=== PATIENT | female | born 2000 | race Hispanic/Latino ===

== ENCOUNTER 2022-03-05 20:37 | Emergency (ER) | payer SELFPAY ==
[2022-03-05 23:15] LABS: Bilirubin Neg (Negative); Blood, Urine Negative (Negative); Clarity Clear (Clear); Glucose, Urine (Dipstick) Normal (Negative); Ketone, Urine 150 mg/dL (Negative); Leukocyte Negative (Negative); Nitrite Negative (Negative); Protein, Urine (Dipstick) 15 mg/dl (Neg-Trace); Specific Gravity, Urine 1.025 (1.002-1.036); Urobilinogen Normal mg/dL (Less than 2)
[2022-03-05] MEDS ORDERED: Ondansetron PF 4 MG/2 ML Vial ONE (23:53)
[2022-03-06 00:14] LABS: #Basophils 0.1 10x3/uL (0.0-0.2); #Eosinphils 0.2 10x3/uL (0.0-0.5); #Monocytes 0.7 10x3/uL (0.0-1.1); #Neutrophils 7.7 10x3/uL (1.5-8.4); %Basophils 0.7 % (0.0-2.0); %Eosinophils 1.8 % (0.0-6.0); %Lymphocytes 27.3 % (18.0-47.0); %Monocytes 5.9 % (0.0-10.0); %Neutrophils 63.8 % (40.0-75.0); Hemoglobin 13.7 g/dL (12.0-15.5); Mean Corpuscular HGB CONC 34.8 g/dL (32.0-36.0); Mean Corpuscular Hemoglobin 29.5 pg (27.0-33.0); Mean Corpuscular Volume 84.9 fl (81.6-98.3); Mean Platelet Volume 9.8 fl (7.4-10.4); Platelet Count 345 10x3/uL (150-450); RBC Distribution Width 12.6 % (11.5-14.5); Red Blood Cell (RBC) Count 4.64 10x6/uL (3.90-5.03)
[2022-03-06 01:13] LABS: ALT (SGPT) 28 U/L (8-55); AST (SGOT) 21 U/L (5-34); Albumin 4.2 g/dL (3.5-5.0); Alkaline Phosphatase 56 U/L (40-110); Anion Gap 17 mmol/L (10-20); BUN (Urea Nitrogen) 6 mg/dL (7.0-18.7); Bilirubin, Total 0.5 mg/dL (0.2-1.2); Calc. Creatinine Clearance 0 mL/min (70-130); Calcium 9.5 mg/dL (7.8-10.44); Carbon Dioxide 19 mmol/L (22-29); Chloride 105 mmol/L (98-107); Globulin 3.2 g/dL (2.4-3.5); Glucose 85 mg/dL (70-105); Potassium 3.9 mmol/L (3.5-5.1); Protein, Total 7.4 g/dL (6.0-8.3); Sodium 137 mmol/L (136-145)
[2022-03-07 12:28] LABS: Chlamydia by PCR Not Detected (NotDetected); GC by PCR Not Detected (NotDetected)
== END 2022-03-06 01:33 | disposition home or self-care (01) ==
LOC: CSHERS 20:37
DX: O20.9 Hemorrhage in early pregnancy, unspecified (principal); O99.891 Other specified diseases and conditions complicating pregnancy; R10.32 Left lower quadrant pain; Z3A.12 12 weeks gestation of pregnancy
CPT/HCPCS: 36415; 76856; 80053; 81003; 84702; 85025; 86900; 86901; 87480; 87491; 87510; 87591; 87660; 96361; 96374; J2405

== ENCOUNTER 2022-09-05 05:32 | Inpatient (IN) | payer MEDICAID, SELFPAY ==
[2022-09-05 06:22] VITALS: BMI 41.5
[2022-09-05] MEDS ORDERED: HYDROcodone/Acetaminophen 5/325 mg Tablet PO PRN ×3 (06:46→14:23)
[2022-09-05] MEDS ORDERED: Ondansetron PF 4 MG/2 ML Vial IVP PRN ×5 (06:46→19:38)
[2022-09-05] MEDS ORDERED: Promethazine HCl 25 MG/ML VIAL IM PRN ×5 (06:46→19:38)
[2022-09-05] MEDS ORDERED: Butorphanol Tartrate 1 MG/ML VIAL SLOW IVP PRN (06:46)
[2022-09-05] MEDS ORDERED: Acetaminophen 500 MG TAB PO PRN (06:46)
[2022-09-05] MEDS ORDERED: Lidocaine 1% (PF) 30 ML VIAL SC PRN (06:46)
[2022-09-05] MEDS ORDERED: Ibuprofen 800 MG TAB PO PRN (06:46)
[2022-09-05] MEDS ORDERED: hydrALAZINE 20 MG/ML VIAL SLOW IVP PRN ×3 (06:46→19:34)
[2022-09-05 06:58] LABS: Hemoglobin 13.8 g/dL (12.0-15.5); Mean Corpuscular HGB CONC 34.2 g/dL (32.0-36.0); Mean Corpuscular Hemoglobin 27.5 pg (27.0-33.0); Mean Corpuscular Volume 80.3 fl (81.6-98.3); Mean Platelet Volume 11.5 fl (7.4-10.4); Platelet Count 345 10x3/uL (150-450); RBC Distribution Width 15.5 % (11.5-14.5); Red Blood Cell (RBC) Count 5.02 10x6/uL (3.90-5.03); White Blood Cell (WBC) Count 11.7 10x3/uL (3.5-10.5)
[2022-09-05] MEDS ORDERED: Lactated Ringer's 1,000 ML IV SCH ×2 (07:00)
[2022-09-05] MEDS ORDERED: Penicillin G Potassium 5 MILL.UNITS in Sodium Chloride 0.9% 100 ML IVPB SCH (07:00)
[2022-09-05] MEDS ORDERED: NS w/ Oxytocin 30 units 500 ML IV SCH ×4 (07:00→19:45)
[2022-09-05] MEDS ORDERED: Fentanyl 2 mcg/Bup 0.1% Cadd 100 ML ONE (07:02)
[2022-09-05 07:31] LABS: HBSAg Index 0.14 S/CO (0-0.99); Hep B Surf Ag Non-Reactive S/CO (NonReactive)
[2022-09-05 07:32] LABS: Syphilis Antibody Nonreactive (Nonreactive); Syphilis Antibody Index 0.04 S/CO (<1.00 Non-Reactive)
[2022-09-05] MEDS ORDERED: diphenhydrAMINE 50 MG/ML VIAL IVP PRN ×3 (08:07→19:33)
[2022-09-05] MEDS ORDERED: Acetaminophen 325 MG TAB PO PRN (08:07)
[2022-09-05] MEDS ORDERED: ePHEDrine Sulfate 50 MG/10 ML VIAL SLOW IVP PRN (08:07)
[2022-09-05] MEDS ORDERED: Naloxone HCl 0.4 mg/ml Vial IVP PRN ×8 (08:07→19:37)
[2022-09-05] MEDS ORDERED: Moisturizing Cream (Eucerin) 113 GM JAR TOP PRN ×3 (08:07→19:35)
[2022-09-05] MEDS ORDERED: Communication Order-Pharmacy FS SCH ×2 (08:15→13:00)
[2022-09-05] MEDS ORDERED: Fentanyl 2 mcg/Bupivacaine 0.1% Cassette 100 ML EPIDURAL SCH (08:15)
[2022-09-05] MEDS ORDERED: Lactated Ringer's 500 ML IV PRN (08:23)
[2022-09-05 09:15] LABS: SARS-CoV-2 NAA Rapid Test Not Detected (NotDetected)
[2022-09-05] MEDS ORDERED: Penicillin G 2.5 MILL.units 2.5 MILL.UNITS in Premix Bag 1 BAG IVPB SCH (11:00)
[2022-09-05] MEDS ORDERED: Bupivacaine 0.25% HCL 30 ML VIAL ONE (12:00)
[2022-09-05] MEDS ORDERED: Famotidine/PF 20 mg/2ml Vial SLOW IVP PRN (12:45)
[2022-09-05] MEDS ORDERED: Bicitra 30 ML UDCUP PO PRN (12:45)
[2022-09-05] MEDS ORDERED: Azithromycin 500 MG in Sodium Chloride 0.9% 250 ML 250 ML IVPB SCH (12:45)
[2022-09-05] MEDS ORDERED: CEFAZOLIN 2 GM in Sodium Chloride 0.9% 100 ML IVPB SCH ×3 (12:45→21:00)
[2022-09-05] MEDS ORDERED: Morphine PF 10 MG/10 ML VIAL ONE (12:46)
[2022-09-05] MEDS ORDERED: Dexamethasone 4 mg/ml Vial ONE (12:47)
[2022-09-05] MEDS ORDERED: Ondansetron PF 4 MG/2 ML Vial ONE (12:47)
[2022-09-05] MEDS ORDERED: Oxytocin 10 UNITS/ML VIAL ONE (12:47)
[2022-09-05] MEDS ORDERED: Ketorolac Tromethamine 30 MG/ML VIAL ONE ×2 (12:47→14:37)
[2022-09-05] MEDS ORDERED: Chloroprocaine 3% PF 20 ML VIAL ONE (12:47)
[2022-09-05] MEDS ORDERED: Ketorolac Tromethamine 30 MG/ML VIAL IVP PRN (12:53)
[2022-09-05] MEDS ORDERED: Ondansetron HCl/PF 4 MG/2 ML Vial IVP PRN (12:53)
[2022-09-05] MEDS ORDERED: Meperidine HCl/PF 25 MG/ML VIAL SLOW IVP PRN (12:53)
[2022-09-05] MEDS ORDERED: Fentanyl 100 MCG/2 ML VIAL SLOW IVP PRN (12:53)
[2022-09-05] MEDS ORDERED: Naloxone HCl 0.4 mg/ml Vial IV PRN ×2 (12:53→19:36)
[2022-09-05] MEDS ORDERED: Promethazine HCl 25 MG SUPP PR PRN (12:53)
[2022-09-05] MEDS ORDERED: Ketorolac Tromethamine 30 MG/ML VIAL IVP SCH ×2 (13:00→19:30)
[2022-09-05] MEDS ORDERED: Famotidine/PF 20 mg/2ml Vial ONE (13:27)
[2022-09-05] MEDS ORDERED: diphenhydrAMINE 25 MG CAP PO PRN ×2 (14:23→19:33)
[2022-09-05] MEDS ORDERED: Simethicone Chewable 80 MG TAB PO PRN (14:23)
[2022-09-05] MEDS ORDERED: Bisacodyl 10 MG SUPP PR PRN ×2 (14:23→19:32)
[2022-09-05] MEDS ORDERED: Meperidine HCl/PF 25 MG/ML VIAL IM PRN (14:23)
[2022-09-05] MEDS ORDERED: Lanolin Ointment 7 GM TUBE TOP PRN ×2 (14:23→19:35)
[2022-09-05] MEDS ORDERED: Meperidine HCl/PF 25 MG/ML VIAL ONE (14:54)
[2022-09-05] MEDS ORDERED: metroNIDAZOLE 500 MG in Premix Bag 1 BAG IVPB SCH (15:00)
[2022-09-05] MEDS ORDERED: Boostrix 0.5 ML (Tdap) VIAL (>/=7 yrs of age) IM ONE (19:45)
[2022-09-05] MEDS: metroNIDAZOLE 500 MG in Premix Bag 1 BAG IVPB SCH ×2 (19:46→23:45)
[2022-09-05] MEDS: Ketorolac Tromethamine 30 MG/ML VIAL IVP SCH (20:23)
[2022-09-05] MEDS: Ferrous Sulfate 325 MG TAB PO SCH (20:52)
[2022-09-05] MEDS ORDERED: Docusate 100 MG CAP PO SCH ×2 (21:00)
[2022-09-05] MEDS ORDERED: Ferrous Sulfate 325 MG TAB PO SCH (21:00)
[2022-09-05] MEDS: CEFAZOLIN 2 GM in Sodium Chloride 0.9% 100 ML IVPB SCH (22:03)
[2022-09-05] MEDS: Docusate 100 MG CAP PO SCH (22:04)
[2022-09-06] MEDS: Ketorolac Tromethamine 30 MG/ML VIAL IVP SCH ×2 (03:00→07:29)
[2022-09-06] MEDS: CEFAZOLIN 2 GM in Sodium Chloride 0.9% 100 ML IVPB SCH ×3 (05:42→21:37)
[2022-09-06] MEDS: Ferrous Sulfate 325 MG TAB PO SCH ×2 (07:18→22:31)
[2022-09-06] MEDS: metroNIDAZOLE 500 MG in Premix Bag 1 BAG IVPB SCH ×3 (07:29→23:01)
[2022-09-06] MEDS: Docusate 100 MG CAP PO SCH ×2 (07:30→21:38)
[2022-09-06] MEDS: Prenatal Vitamin 1 TAB PO SCH (07:30)
[2022-09-06] MEDS ORDERED: Prenatal Vitamin 1 TAB PO SCH (09:00)
[2022-09-06] MEDS: HYDROcodone/Acetaminophen 5/325 mg Tablet PO PRN ×3 (09:04→21:38)
[2022-09-06 09:25] LABS: Hemoglobin 11.5 g/dL (12.0-15.5); Mean Corpuscular HGB CONC 30.4 g/dL (32.0-36.0); Mean Corpuscular Hemoglobin 29.8 pg (27.0-33.0); Mean Corpuscular Volume 97.9 fl (81.6-98.3); Mean Platelet Volume 9.8 fl (7.4-10.4); Platelet Count 141 10x3/uL (150-450); RBC Distribution Width 18.6 % (11.5-14.5); Red Blood Cell (RBC) Count 3.86 10x6/uL (3.90-5.03); White Blood Cell (WBC) Count 10.6 10x3/uL (3.5-10.5)
[2022-09-06] MEDS ORDERED: Ibuprofen 800 MG TAB PO SCH (14:00)
[2022-09-06] MEDS: Ibuprofen 800 MG TAB PO SCH ×2 (14:05→21:39)
[2022-09-06] MEDS ORDERED: Boostrix 0.5 ML (Tdap) VIAL (>/=7 yrs of age) IM ONE (14:23)
[2022-09-06] MEDS ORDERED: Sodium Chloride 0.9% 100 ML ONE (21:13)
[2022-09-06] MEDS: Simethicone Chewable 80 MG TAB PO PRN (21:38)
[2022-09-07] MEDS: Simethicone Chewable 80 MG TAB PO PRN ×2 (03:44→13:45)
[2022-09-07] MEDS: HYDROcodone/Acetaminophen 5/325 mg Tablet PO PRN ×2 (03:45→13:45)
[2022-09-07] MEDS: CEFAZOLIN 2 GM in Sodium Chloride 0.9% 100 ML IVPB SCH ×3 (05:04→21:34)
[2022-09-07] MEDS: Ibuprofen 800 MG TAB PO SCH ×3 (05:04→21:34)
[2022-09-07] MEDS: metroNIDAZOLE 500 MG in Premix Bag 1 BAG IVPB SCH ×3 (06:13→23:55)
[2022-09-07] MEDS: Prenatal Vitamin 1 TAB PO SCH (08:35)
[2022-09-07] MEDS: Docusate 100 MG CAP PO SCH ×2 (08:36→21:34)
[2022-09-07] MEDS: Ferrous Sulfate 325 MG TAB PO SCH ×2 (13:40→19:09)
[2022-09-08] MEDS: Ibuprofen 800 MG TAB PO SCH ×2 (05:39→14:12)
[2022-09-08] MEDS: CEFAZOLIN 2 GM in Sodium Chloride 0.9% 100 ML IVPB SCH ×2 (06:21→12:48)
[2022-09-08 07:38] VITALS: BP 112/62; TEMP 98.3
[2022-09-08] MEDS: metroNIDAZOLE 500 MG in Premix Bag 1 BAG IVPB SCH ×2 (07:52→14:13)
[2022-09-08] MEDS: Prenatal Vitamin 1 TAB PO SCH (07:52)
[2022-09-08] MEDS: Docusate 100 MG CAP PO SCH (07:52)
[2022-09-08] MEDS: Ferrous Sulfate 325 MG TAB PO SCH (11:13)
== END 2022-09-08 16:35 | disposition home or self-care (01) | DRG 788 ==
LOC: CSHLD/OP 05:32 → CSHLD 06:23 → UNDOADMIN 06:23 → UNDODISIN 15:03 → CSHPED 18:36 → OBSVTOIN 18:37
PROVIDERS: ADMIT Family Medicine; ATTEND Family Medicine
PROC: 10D00Z1 Extraction of Products of Conception, Low, Open Approach (ICD-10-PCS; principal; 2022-09-05)
PROC: 3E0M05Z Introduction of Adhesion Barrier into Peritoneal Cavity, Open Approach (ICD-10-PCS; 2022-09-05)
PROC: 10907ZC Drainage of Amniotic Fluid, Therapeutic from Products of Conception, Via Natural or Artificial Opening (ICD-10-PCS; 2022-09-05)
DX: O62.1 Secondary uterine inertia (principal); Z20.822 Contact with and (suspected) exposure to COVID-19; Z3A.38 38 weeks gestation of pregnancy; Z37.0 Single live birth; Z79.82 Long term (current) use of aspirin; O76 Abnormality in fetal heart rate and rhythm complicating labor and delivery
CPT/HCPCS: 51702; 85027; 86780; 86850; 86900; 86901; 87340; 99285; J0456; J1100; J1885; J2175; J2274; J2400; J2405; J2590; J3490; J7050; J7120; S0020; S0028; U0002